=== PATIENT | male | born 1960 | race Caucasian/White ===

== ENCOUNTER 2024-11-21 10:12 | Outpatient (CLI) | payer OTHER, SELFPAY | END 2024-11-21 10:13 | disposition home or self-care (01) | LOC: FRMREF 10:13 | PROVIDERS: Visit Provider Family Medicine | DX: E78.5 Hyperlipidemia, unspecified (principal); Z00.00 Encounter for general adult medical examination without abnormal findings; I10 Essential (primary) hypertension; Z12.5 Encounter for screening for malignant neoplasm of prostate | CPT/HCPCS: 80053; 80061; G0103 ==

== ENCOUNTER 2024-11-22 16:24 | Emergency (ER) | payer OTHER, SELFPAY ==
--- OUTSIDE RECORDS SUMMARY | 2024-11-22 16:26 | XMS_ITS | Clinical Summary ---
Author Organization [facility] Address [address] [place] [id number] Care Team Providers Care Sales Agent Casualty Insurance Name Role Phone Ronnell Tom MD Primary Care Provider [phone] Allergies No known active allergies Medications atorvastatin (LIPITOR) 40 MG tablet Take 40 mg by mouth 06/10/2022 Active lisinopril-hydr ochlorothiazide (ZESTORETIC) 20-25 MG tablet Take 1 tablet by mouth daily 03/10/2022 Active metFORMIN (GLUCOPHAGE XR) 500 MG 24 hr tablet Take 1,000 mg by mouth 02/10/2022 Active sertraline (ZOLOFT) 50 MG tablet Take 1 tablet by mouth every morning 02/12/2021 Active traZODone (DESYREL) 100 MG tablet TAKE 1 TABLET BY MOUTH EVERY DAY AT BEDTIME FOR SLEEP 05/13/2022 Active Encounters Date Type Department Care Team Description 08/24/2024 11:33 PM CDT - 08/25/2024 6:30 AM CDT Emergency [facility] Emergency Dept [address] [place] [address] Vazquez Quiroz MD Alcoholic intoxication with complication; Fall, initial encounter; Multiple abrasions Discharge Disposition: Home or Self Care 08/24/2024 Travel from Last 3 Months Immunizations Immunization Administration Dates Next Due TDAP (Adacel,Boostrix) 08/24/2024 Social History Tobacco Use Types Packs/Day Years Used Date Smoking Tobacco: Never Assessed Adolescent Education Answer Date Record ed Getting School Help Needed Not on file 12/24 Sex and Gender Information Value Date Recorded Sex Assigned at Not on file Legal Sex Male 5:59 PM CDT Gender Identity Not on file Sexual Orientation Not on file Last Filed Vital Signs Vital Sign Reading Time Taken Comments Blood Pressure 145/78 08/25/2024 12:10 AM CDT Pulse 98 08/24/2024 11:37 PM CDT Temperature 36.8 C (98.2 F) 08/24/2024 11:37 PM CDT Respiratory Rate 20 08/24/2024 11:37 PM CDT Oxygen Saturation 98% 08/25/2024 12:10 AM CDT Inhaled Oxygen Concentration - - Weight - - Height 185.4 cm (6' 1) 06/23/2022 6:04 PM CDT Body Mass Index - - Plan of Treatment Health Maintenance Due Date Last Done Comments ADVANCE CARE PLANNING 1960 ANNUAL REVIEW OF HM ORDERS 1960 CT COLONOGRAPHY 1960 FLEX SIG 1960 LIPID 1960 sDNA (Cologuard) 1960 YEARLY PREVENTIVE VISIT 1963 COLONOSCOPY 1970 HIV SCREENING 1975 HEPATITIS C SCREENING 1978 PNEUMOCOCCAL VACCINE 50+ YEARS (1 of 1 - PCV) 2010 ZOSTER VACCINE (1 of 2) 2010 COLORECTAL CANCER SCREENING 12/19/2019 FIT 12/19/2019 12/18/2018 COVID-19 VACCINE ( season) 2023 07/24/2022, 03/04/2021, 08/19/2020, Additional history exists PHQ-2 (once per calendar year) 2024 INFLUENZA VACCINE (#1) 2024 2, 01/13/2019, 02/04/2018, Additional history exists DIABETES SCREENING 08/25/2027 08/24/2024 DTAP/TDAP/TD VACCINE (2 - Td or Tdap) 08/24/2034 08/24/2024 RSV VACCINE (1 - 1-dose 75+ series) 2035 HPV VACCINE (No Doses Required) Completed MENINGITIS VACCINE Aged Out No longer eligible based on patient's age to complete this topic Procedures Procedure Name Priority Date/Time Associated Diagnosis Comments CT HEAD W/O CONTRAST STAT 08/25/2024 12:04 AM CDT EXTRA RED TOP TUBE STAT 08/24/2024 11 :53 PM CDT EXTRA BLUE TOP TUBE STAT 08/24/2024 1 1:53 PM CDT EXTRA TUBE STAT 08/24/2024 11:53 PM CDT CBC WITH PLATELETS STAT 08/24/2024 11 :53 PM CDT BASIC METABOLIC PANEL STAT 08/24/2024 11:53 PM CDT ETHANOL LEVEL BLOOD STAT 08/24/2024 1 1:53 PM CDT from Last 3 Months Results * Head CT w/o contrast (08/25/2024 12:04 AM CDT) Anatomical Region Laterality Modality Head, SUBRAD CT NEURO, SUBRA D CT NEURO, UMP CT NEURO, RAD CT Computed Tomography 08/25/2024 12:0 4 AM CDT Impressions 08/25/2024 12:37 AM CDT IMPRESSION: 1. No CT finding of a mass, hemorrhage or focal area suggestive of acute infarct. 2. Diffuse age related changes. Narrative 08/25/2024 12:37 AM CDT EXAM: CT HEAD W/O CONTRAST LOCATION: [facility] DATE: 08/25/2024 INDICATION: Fall, intoxicated COMPARISON: None. TECHNIQUE: Routine CT Head without IV contrast. Multiplanar reformats. Dose reduction techniques were used. FINDINGS: INTRACRANIAL CONTENTS: No intracranial hemorrhage, extraaxial collection, or mass effect. No CT evidence of acute infarct. There is mild diffuse small vessel ischemic disease visualized. There is a prominent perivascular space involving the inferior left basal ganglia. The ventricular system, basal cisterns and the cortical sulci are consistent with diffuse volume loss. VISUALIZED ORBITS/SINUSES/MASTOIDS: No intraorbital abnormality. No paranasal sinus mucosal disease. No middle ear or mastoid effusion. BONES/SOFT TISSUES: No acute abnormality. Procedure Note Sunni Porter MD - 08/25/2024 EXAM: CT HEAD W/O CONTRAST LOCATION: [facility] DATE: 08/25/2024 INDICATION: Fall, intoxicated COMPARISON: None. TECHNIQUE: Routine CT Head without IV contrast. Multiplanar reformats.Dose reduction techniques were used. FINDINGS: INTRACRANIAL CONTENTS: No intracranial hemorrhage, extraaxial collection,or mass effect. No CT evidence of acute infarct. There is mild diffusesmall vessel ischemic disease visualized. There is a prominentperivascular space involving the inferior left basal ganglia. The ventricular system, basal cisterns and thecortical sulci are consistent with diffuse volume loss. VISUALIZED ORBITS/SINUSES/MASTOIDS: No intraorbital abnormality. Noparanasal sinus mucosal disease. No middle ear or mastoid effusion. BONES/SOFT TISSUES: No acute abnormality. IMPRESSION: 1. No CT finding of a mass, hemorrhage or focal area suggestive of acuteinfarct. 2. Diffuse age related changes. us Vazquez Quiroz MD IMG CT ORDERABLES Final Result * Extra Red Top Tube (08/24/2024 11:53 PM CDT) Hold Specimen [facility] 08/25/2024 1:03 AM CDT LABORATORY Blood BLOOD SPECIMEN / Unknown Venipuncture / Unknown 08/24/2024 11:53 PM CDT 08/24/2024 11:56 PM CDT us Vazquez Quiroz MD LAB - BLOOD ORDERABLES Final Res ult [facility] [address] Lab (1st floor, no room number) [place] [address], [facility] * Extra Blue Top Tube (08/24/2024 11:53 PM CDT) Hold Specimen [facility] 08/25/2024 1:03 AM CDT LABORATORY Blood BLOOD SPECIMEN / Unknown Venipuncture / Unknown 08/24/2024 11:53 PM CDT 08/24/2024 11:56 PM CDT us Vazquez Quiroz MD LAB - BLOOD ORDERABLES Final Res ult LABORATORY [facility] Lab [address] [facility] Lab (1st floor, no room number) [place] [address] [place] [address] * (ABNORMAL) Ethanol Level Blood (08/24/2024 11:53 PM CDT) Ethanol Level Blood 0.33(HH) <=0.01 g/dL 08/25/2024 12:24 AM CDT LABORATORY Blood BLOOD SPECIMEN / Unknown Venipuncture / Unknown 08/24/2024 11:53 PM CDT 08/24/2024 11:56 PM CDT Vazquez Quiroz MD LAB - BLOOD ORDERABLES Final Res ult Performing Organization Address City/[facility]/ZIP Co de Phone Number LABORATORY [facility] [address] [facility] Lab (1st floor, no room number) [place] [id number] * (ABNORMAL) Basic metabolic panel (BMP) (08/24/2024 11:53 PM CDT) Sodium 135 135 - 145 mmol/L 08/25/2024 12:15 AM CDT LABORATORY Potassium 3.9 3.4 - 5.3 mmol/L 08/25/2024 12:15 AM CDT LABORATORY Chloride 98 98 - 107 mmol/L 08/25/2024 12:15 AM CDT LABORATORY Carbon Dioxide (CO2) 17(L) 22 - 29 mmol/L 08/25/2024 12:15 AM CDT LABORATORY Anion Gap 20(H) 7 - 15 mmol/L 08/25/2024 12:15 AM CDT LABORATORY Urea Nitrogen 15.7 8.0 - 23.0 mg/dL 08/25/2024 12:15 AM CDT LABORATORY Creatinine 1.08 0.67 - 1.17 mg/dL 08/25/2024 12:15 AM CDT LABORATORY GFR Estimate 77 >60 mL/min/1.7 3m2 08/25/2024 12:15 AM CDT LABORATORY Comment:eGFR calculated usin g 2020 CKD-EPI equation. Calcium 9.6 8.8 - 10.4 mg/dL 08/25/2024 12:15 AM CDT [facility] LABORATORY Glucose 147(H) 70 - 99 mg/dL 08/25/2024 12:15 AM CDT [facility] LABORATORY Blood BLOOD SPECIMEN / Unknown Venipuncture / Unknown 08/24/2024 11:53 PM CDT 08/24/2024 11:56 PM CDT Vazquez Quiroz MD LAB - BLOOD ORDERABLES Final Res ult [facility] LABORATORY [facility] Lab [address] [facility] Lab (1st floor, no room number) [place] [address] * (ABNORMAL) CBC with platelets (08/24/2024 11:53 PM CDT) WBC Count 10.2 4.0 - 11.0 10e3/uL 08/24/2024 11:59 PM CDT [facility] LABORATORY RBC Count 4.28(L) 4.40 - 5.90 10e6/uL 08/24/2024 11:59 PM CDT [facility] LABORATORY Hemoglobin 14.2 13.3 - 17.7 g/dL 08/24/2024 11:59 PM CDT [facility] LABORATORY Hematocrit 40.8 40.0 - 53.0 % 08/24/2024 11:59 PM CDT [facility] LABORATORY MCV 95 78 - 100 fL 08/24/2024 11:59 PM CDT [facility] LABORATORY MCH 33.2(H) 26.5 - 33.0 pg 08/24/2024 11:59 PM CDT [facility] LABORATORY MCHC 34.8 31.5 - 36.5 g/dL 08/24/2024 11:59 PM CDT [facility] LABORATORY RDW 13.3 10.0 - 15.0 % 08/24/2024 11:59 PM CDT [facility] LABORATORY Platelet Count 215 150 - 450 10e3/uL 08/24/2024 11:59 PM CDT [facility] LABORATORY Blood BLOOD SPECIMEN / Unknown Venipuncture / Unknown 08/24/2024 11:53 PM CDT 08/24/2024 11:56 PM CDT us Vazquez Quiroz MD LAB - BLOOD ORDERABLES Final Res ult [facility] [address] [facility] Lab (1st floor, no room number) [place] [address], [facility] from Last 3 Months Care Teams Sales Agent Casualty Insurance Relationship Specialty Start Date End Date Ronnell Tom MD [facility] [place] [address] PCP - General Sports Medicine 06/23/22
--- OUTSIDE RECORDS SUMMARY | 2024-11-22 16:26 | XMS_ITS | Clinical Summary ---
Author Organization [email or web address] [facility] Address [address] [place] [address] Care Team Providers Care Solution Advisor Name Role Phone Ronnell Tom MD Primary Care Provider [phone] Allergies No known active allergies Medications aspirin (ECOTRIN) 81 mg enteric coated tablet Take 1 tablet by mouth once daily with a meal. 0 11/28/19 15 Active albuterol HFA 90 mcg/actuation inhalerIndicatio ns:Wheezing Inhale 1-2 Puffs by mouth every 4 hours if needed. 1 Inhaler 4 05/15/19 18 Active gabapentin (NEURONTIN) 300 mg capsuleIndicatio ns:Lateral pain of right hip Take 1 Capsule (300 mg) by mouth at bedtime. 90 Capsule 1 09/18/19 24 Active lisinopriL 20 mg tabletIndication s:Essential hypertension TAKE 1 TABLET BY MOUTH EVERY DAY 90 Tablet 06/25/19 25 Active traZODone 100 mg tabletIndication s:Adjustment insomnia TAKE 1 TABLET BY MOUTH EVERY DAY AT BEDTIME FOR SLEEP 90 Tablet 06/25/19 25 Active hydroCHLOROthiaz isabella 25 mg tabletIndication s:Essential hypertension TAKE 1 TABLET BY MOUTH EVERY DAY 90 Tablet 06/25/19 25 Active atorvastatin (LIPITOR) 40 mg tabletIndication s:Hypercholester olemia Take 1 Tablet (40 mg) by mouth once daily. FOR CHOLESTEROL 30 Tablet 11/18/19 25 Active metFORMIN (GLUCOPHAGE XR) 500 mg Extended-Release tabletIndication s:Type 2 diabetes mellitus with microalbuminuria , without long-term current use of insulin (HC) Take 2 Tablets (1,000 mg) by mouth two times daily with meals. For diabetes. 120 Tablet 11/18/19 25 Active metFORMIN (GLUCOPHAGE XR) 500 mg Extended-Release tabletIndication s:Type 2 diabetes mellitus with microalbuminuria , without long-term current use of insulin (HC) TAKE 2 TABLETS (1,000 MG) BY MOUTH TWO TIMES DAILY WITH MEALS. FOR DIABETES. 120 Tablet 10/16/19 25 025 Discontin ued(Reord er (E-cancel not sent)) atorvastatin (LIPITOR) 40 mg tabletIndication s:Hypercholester olemia TAKE 1 TABLET (40 MG) BY MOUTH ONCE DAILY. FOR CHOLESTEROL 30 Tablet 10/16/19 25 025 Discontin ued(Reord er (E-cancel not sent)) Active Problems Problem Noted Date Diagnosed Date Insomnia, idiopathic 08/07/2018 Overview (08/07/2018): Apr 2018: started trazodone 50mg. August 2018: increased trazodone to 100mg Hyperopic astigmatism of left eye 07/18/2016 Hypermetropia of right eye 07/18/2016 Type 2 diabetes mellitus wit h microalbuminuria, without long-term current use of insulin 11/27/2014 Overview (12/25/2015): Diagnosis approximately 2009. November 2014: restarted metformin. Dec 2015: Positive microalbuminuria. Increased metformin to 1,000mg twice daily. Primary hypertension 11/27/2014 Overview (02/10/2016): Diagnosis approximately 2009. November 2014: restarted lisinopril. Dec 2014: doubled lisinopril to 40mg. May 2015: change to lisinopril/ Hydrochlorothiazide combination pill. Hypercholesterolemia 11/27/2014 Overview (12/01/2014): November 2014: off medication, ASCVD Risk Board Certified Arts Therapist: 21 % 10 Year risk after info entered. Atorvastatin (Lipitor) 40mg started. Tobacco use 11/27/2014 Presbyopia 12/04/2007 Encounters Date Type Department Care Team Description 11/14/2024 Refill [facility] [address] [place] [address] Ronnell Tom MD Refill Request (Atorvastatin 40mg tablet, Metformin HCL ER 500mg tablet) 10/12/2024 Refill [facility] [address] [place] [address] Ronnell Tom MD Refill Request (Metformin, Atorvastatin) from Last 3 Months Immunizations Immunization Administration Dates Next Due COVID-19 vaccine (Moderna 100mcg/0.5mL) PF, MDV 08/19/2020,07/22/2020 COVID-19 vaccine (Moderna Carl reji 50mcg/0.25mL) PF, MDV 03/04/2021 Influenza Virus, Unspecified 03/08/2015 Influenza, IIV3 (Age >=3 years) 12/13/2012,01/11,01/14/2010 Influenza, IIV4 05/03/2021,,01/15/2018,2016,04/30/2016 Family History Medical History Relation Name Comments Good Health Father Good Health Mother Relation Name Status Comments Father Mother Social History Tobacco Use Types Packs/Day Years Used Date Smoking Tobacco: Every Day Cigarettes 1 30 Smokeless Tobacco: Never Tobacco Cessation:Ready to Q uit: No; Counseling Given: Yes Alcohol Use Standard Drinks/Week Comments Yes 24 (1 standard drink = 0.6 oz pu re alcohol) moderate PHQ-2 Answer Date Recorded PHQ-2 TOTAL SCORE 2 09/18/2023 Social Connections Answer Date Recorded Do you often feel lonely or isolated from those around you? 0 09/18/2023 Financial Resource Strain Answer Date R ecorded Difficulty of Paying Living Expenses Not on file 09/18/2023 Difficulty of Paying Living Expenses 3 09/18/2023 Food Insecurity Answer Date Recorded Do you worry your food will run out before you are able to buy more? 1 09/18/2023 Transportation Needs Answer Date Record ed Does lack of transportation keep you from medica l appointments? 2 09/18/2023 Does lack of transportation keep you from work, meetings or getting things that you need? 2 09/18/2023 Housing Stability Answer Date Recorded What is your housing situation today? 1 09/18/2023 Utilities Answer Date Recorded Do you have trouble paying f or utilities (for example, heat, electricity, water, phone)? 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 Body Mass Index 30.67 02/10/2022 11:10 AM [employer]SEED OIL PR[employer] TENDER Plan of Treatment Health Maintenance Due Date Last Done Comments Tetanus booster 1971 HIV for age 15-65 1975 Hepatitis C screening for age 18-79 1978 Pneumococcal series for age 50+ (1 of 2 - PCV) [address] (for lung CA) age 50-80 2010 Zoster (shingles) series for age 50+ (1 of 2) 2010 Fecal testing non-DNA (FIT,FOBT,iFOBT) for age 45-75 12/19/2019 12/18/2018, 08/13/2017, 05/17/2016, Additional history exists BMI (ht and wt on same day) for age 18+ 02/10/2023 02/10/2022, 10/30/2020, 11/25/2019, Additional history exists COVID-19 vaccine series ( season) 2023 07/24/2022, 03/04/2021, 08/19/2020, Additional history exists Depression screening for age 12+ 09/21/2024 09/22/2023, 09/22/2023, 09/20/2023, Additional history exists Influenza Vaccine (#1) 2024 2, 01/13/2019, 01/15/2018, Additional history exists Lipids for age 45-75 09/17/2028 09/18/2023, 10/30/2020, 12/17/2018, Additional history exists RSV vaccine for adults or (1 - 1-dose 75+ series) 2035 Hepatitis B series for 19+ Aged Out N o longer eligible based on patient's age to complete this topic Procedures Procedure Name Priority Date/Time Associated Diagnosis Comments LIPID PANEL W REFLEX MEASURED LDL Routine 09/18/2023 12:20 PM CDT Hypercholesterolemi a OCCULT BLOOD IFOBT STOOL Routine 12/18/2018 8:27 AM CDT Screening for colon cancer from Last 3 Months or Most Recently Relevant to Health Maintenance Results * (ABNORMAL) LIPID PANEL W REFLEX MEASURED LDL (09/18/2023 12:20 PM CDT) CHOLESTEROL,TOTAL 173 100 - 199 mg/dL 09/18/2023 11:22 PM CDT [facility] Comment: Cholesterol, Total Reference Ranges Desirable <200 mg/dL Borderline 200-239 mg/dL High >=240 mg/dL TRIGLYCERIDES 224(H) <150 mg/dL 09/18/2023 11:22 PM CDT [facility] HDL CHOLESTEROL 46 >40 mg/dL 11:22 PM CDT [facility] NON-HDL CHOLESTEROL 127 <145 mg/dl 09/18/2023 11:22 PM CDT [facility] CHOL/HDL RATIO 3.76 <4.50 09/18/2023 11:22 PM CDT [facility] LDL CHOLESTEROL 82 <=130 mg/dL 09/18/2023 11:22 PM CDT [facility] VLDL CHOLESTEROL 45(H) <=30 mg/dL 09/18/2023 11:22 PM CDT [facility] PROVIDER ORDERED STATUS RANDOM 09/18/2023 11:22 PM CDT [facility] Blood BLOOD SPECIMEN / Unknown Venipuncture / Unknown 09/18/2023 12:20 PM CDT 09/18/2023 12:22 PM CDT Ronnell Tom MD CHEMISTRY Final Res ult [facility] [address] [place] [address], [place] * OCCULT BLOOD IFOBT STOOL (12/18/2018 8:27 AM CDT) STOOL BLOOD ,IFOBT Negative Negative 12/18/2018 8:42 AM CDT [facility] Stool STOOL SPECIMEN / Unknown Non-Blood / Unknown 12/18/2018 8:27 AM CDT 12/18/2018 8:27 AM CDT Ronnell Tom MD LABORATORY Final Res ult [facility] [address] [place] [address], from Last 3 Months or Most Recently Relevant to Health Maintenance Care Teams Solution Advisor Relationship Specialty Start Date End Date Ronnell [place] [address] PCP - General Family Practice 09/18/23
[2024-11-22 16:32] VITALS: BP 182/83; PULSE 104; RESP 22; TEMP 36.9; O2SAT 96; BMI 30.2
--- NOTE | 2024-11-22 16:47 | ED_ITS ---
HPI - General Adult General Chief complaint: Fall/Minor Trauma Stated complaint: fall Time Seen by Provider: 11/22/24 16:33 History of Present Illness HPI narrative: Patient is a 64 year white male chronic alcoholic who was drinking heavily today and went outside and then was going to smoke and fell sideways and could not get up. His called 911 he was brought to the emergency department. He states that he has been drinking heavily he drinks heavily every day. He does not have any interest in stopping. He is a type 2 diabetic. His blood sugar was 155. He has been eating and taking fluids adequately. He denies any headache neck pain back pain chest pain abdominal pain or pelvic pain. He scraped his right knee. He scraped his elbows but he is moving them fully has normal pronation supination of both arms normal flexion extension He has got full range of motion his right knee no tenderness. Wounds will be covered in cleanse. Related Data Home Medications ?Medication ?Instructions ?Recorded ?Confirmed albuterol sulfate 90 mcg/actuation 2 puff inhalation Q 4-6H PRN 11/21/24 11/21/24 aerosol inhaler shortness of breath or wheez ing aspirin 81 mg tablet 81 mg PO QDAY 11/21/2411/21 Previous Rx's ?Medication ?Instructions ?Recorded atorvastatin 40 mg tablet 40 mg PO DAILY cholesterol # 90 tabs 11/21/24 gabapentin 300 mg capsule 300 mg PO QPM #360 caps 11/02 04/27 lisinopril 20 1 tab PO QDAY #90 tabs 11/21 mg-hydrochlorothiazide 25 mg tablet metformin 500 mg tablet,extended 1,000 mg (2 x 500 mg) PO BID 11/21/24 release 24 hr diabetes mellitus #360 tabs trazodone 100 mg tablet 100 mg PO QPM insomnia #90 t abs 11/21/24 Allergies Allergy/AdvReac Type Severity Reaction Status Date / Time No Known Drug Allergies Allergy Verified 11/21/24 09:48 Review of Systems Status of ROS: Reports: 6 or more systems reviewed and unremarkable except as noted in History and below [facility] Medical History Tobacco use ?Z72.0 - Tobacco use (ICD-10) Skin cancer ?C44.90 - Unspecified malignant neoplasm of skin, unspecified (ICD-10) Insomnia ?G47.00 - Insomnia, unspecified (ICD-10) Diabetes type 2 ?E11.9 - Type 2 diabetes mellitus without complications (ICD-10) Chronic pain ?G89.29 - Other chronic pain (ICD-10) Primary hypertension ?I10 - Essential (primary) hypertension (ICD-10) Dyslipidemia ?E78.5 - Hyperlipidemia, unspecified (ICD-10) Wheezing ?R06.2 - Wheezing (ICD-10) Social History How often do you have a drink containing alcohol: 4 or more times a week How many standard drinks containing alcohol do you have on a typical day: 10 or more AUDIT-C Alcohol total score: 8 Exam Narrative: Exam Narrative: Objective: Vital signs show slightly elevated systolic pressure but otherwise afebrile O2 sat 96% on room air In general patient is in no apparent distress he is pleasant man he is smells of alcohol he is alert oriented x3 HEENT is unremarkable Neck supple nontender Back exam unremarkable Chest abdomen pelvis stable no tenderness no obvious injury. He has got a couple abrasions on his elbows and 1 on his right knee that is superficial. These will be cleansed and covered he has got full range of motion of both arms and elbows normal pronation supination Normal flexion extension of his L knee and no patellar tenderness. Neurologic is nonfocal upper lower extremities. Const: Vital Signs, click to edit/add: Vital Signs - 24 hr 11/22/24 16:32 Temperature 98.4 F Pulse Rate [Right Pulse Oximeter] 104 H Respiratory Rate 22 Blood Pressure [Ri ght Upper Arm] 182/83 H Pulse Oximetry 96 Oxygen Delivery Me thod Room Air Course Vital Signs Vital signs: Initial Vital Signs Temperature 98.4 F 11/22/24 16:32 Temperature Source Temporal Artery Scan 11/22/24 16:32 Pulse Rate 104 H 11/22/24 16:32 Respiratory Rate 22 11/22/24 16:32 Blood Pressure 182/83 H 11/22/24 16:32 Blood Pressure Mean 116 H 11/22/24 16:32 Blood Pressure Position Sitting 11/22/24 16:32 Pulse Oximetry 96 11/22/24 16:32 Oxygen Delivery Method Room Air 11/22/24 16:32 Vital Signs Temperature 98.4 F 11/22/24 16:32 Pulse Rate 104 H 11/22/24 16:32 Respiratory Rate 22 11/22/24 16:32 Blood Pressure 182/83 H 11/22/24 16:32 Pulse Oximetry 96 11/22/24 16:32 Oxygen Delivery Method Room Air 11/22/24 16:32 Temperature 98.4 F 11/22/24 16:32 Pulse Rate 104 H 11/22/24 16:32 Respiratory Rate 22 11/22/24 16:32 Blood Pressure 182/83 H 11/22/24 16:32 Pulse Oximetry 96 11/22/24 16:32 Oxygen Delivery Method Room Air 11/22/24 16:32 Medical Decision Making MDM Narrative Medical decision making narrative: [age] year white male chronic alcoholic who is intoxicated but mental status is intact. He declines any further testing. He is up-to-date on tetanus. He has got no demonstrable head injury neck pain or back pain or back injury. At this point I think it is reasonable to Amarjit cover his wounds. He does have a responsible adult his at home but he has no vehicle. He lives in [place]. Will check on a transport system or taxi to get him back home. We will 1st check that he is responsible dealt his at home. Again I think he is intoxicated but clinically able to decide whether he wants additional testing or not. He is up-to-date on tetanus as mention. Return as needed. Discharge Plan Discharge Clinical Impression: Alcohol intoxication, Alcoholism, chronic, Abrasions of multiple sites Patient Disposition: Home w/ Parent or Adult Condition: Stable Additional Instructions: Recommend stop drinking, recommend bacitracin here abrasions as needed. Recommend you see your regular doctor in the next couple of days to discuss her medical history and alcohol use. Return to the ED sooner as needed. Activity Level: Light activity Discharge Diet: Diabetic Prescriptions: No Action aspirin 81 mg tablet 81 mg PO QDAY albuterol sulfate 90 mcg/actuation HFA aerosol inhaler 2 puff inhalation Q4-6H PRN (Reason: shortness of breath or wheezing) atorvastatin 40 mg tablet 40 mg PO DAILY Qty: 90 3RF lisinopril-hydrochlorothiazide 20-25 mg tablet 1 tab PO QDAY Qty: 90 3RF gabapentin 300 mg capsule 300 mg PO QPM Qty: 360 3RF Rx Instructions: 2 tabs in morning, 2 tabs in afternoon metformin 500 mg tablet extended release 24 hr 1,000 mg PO BID Qty: 360 3RF trazodone 100 mg tablet 100 mg PO QPM Qty: 90 3RF Follow Up/Referrals: Julien Quiros MD [Primary Care Provider, Family Practice] Stand Alone Forms: LIANAIth Info Instructions
== END 2024-11-22 17:09 | disposition home or self-care (01) ==
LOC: ED 17:04
PROVIDERS: Emergency Provider Family Medicine; PCP Family Medicine
DX: F10.229 Alcohol dependence with intoxication, unspecified (principal); S50.312A Abrasion of left elbow, initial encounter; S50.311A Abrasion of right elbow, initial encounter; S80.211A Abrasion, right knee, initial encounter; W18.30XA Fall on same level, unspecified, initial encounter; Y92.007 Garden or yard of unspecified non-institutional (private) residence as the place of occurrence of the external cause
CPT/HCPCS: 99282; 99283; 99284